=== PATIENT | female | born 1990 | race Caucasian/White ===

== ENCOUNTER 2016-10-10 12:49 | Outpatient (CLI) | payer OTHER ==
[~2016-10-10] VITALS: Ht 167.6 cm; Wt 127.5 kg
[~2016-10-10 12:49] MED LIST: ACET325T33 PO
[2016-10-10] MEDS ORDERED: PRENAT PO (13:19)
[2016-10-10] MEDS ORDERED: FER325 PO (13:20)
[2016-10-10] MEDS ORDERED: CALC600T11 PO (13:21)
[2016-10-10 13:22] VITALS: Ht 167.6 cm; Wt 127.5 kg
[2016-10-10 13:24] VITALS: BP 133/69; PULSE 90
--- NOTE | 2016-10-10 15:17 | RADRPT ---
PROCEDURE: OB ultrasound for biophysical profile CLINICAL INDICATION: Biophysical profile. . Decreased movement TECHNIQUE: Multiple sonographic images of the pelvis were obtained. Transabdominal views are obta ined. COMPARISON: 05/19/2016 OB ultrasound FINDINGS: Single intrauterine gestation. Presentation: Cephalic. Placenta: Anterior. No evidence of placental abruption. No evidence of placenta previa. breathing movement = 2/2 tone = 2/2 motion = 2/2 MARK = 2/2 MARK = 14.2 cm heart rate: 140 beats per minute IMPRESSION: Single intrauterine gestation. Biophysical profile 01/24 RPTAT: AADD .Vishnu Olivier MD, MD Date Time Electronically viewed and signed by .Vishnu Olivier MD, on 10/10/2016 15:16 .B/
--- NOTE | 2016-10-10 16:30 | PN ---
Date/Time of Note Date/Time of Note DATE: 10/10/16 TIME: 16:28 OB Subjective Subjective Subjective Patient is 1 para 0 at 30+3 weeks of gestation who presents with decreased movement She also reports couple episodes of elevated blood pressure in the office and positive proteinuria Patient reports positive movement, no leaking fluid no vaginal bleeding OB Objective Objective Objective NST is reactive Biophysical profile of 8 out of 8 MARK 14.2 HEENT: WNL Heart: Rhythm Normal Lungs: Clear Abdomen: WNL Extremities: Normal Heart Rate: 140's Accelerations: Accelerations Present Decelerations: No Decelerations Contractions on Admission: None OB Assessment/Plan Other Assessment: 1 para 0 at 30+ weeks of gestation Rule out PIH Other plan: PIH labs- wnl Patient has a follow-up appointment with her OB on , October 13, 2016 MIKE ABEL MD Oct 10, 2016 16:30
[2016-10-10 17:22] LABS: ADD SCAN DIFF NO
[2016-10-10 17:24] LABS: BASOPHILS % 0.2 % (0.0-2.0); EOSINOPHILS # 0.2 10^3/ul (0.0-0.5); EOSINOPHILS % 1.3 % (0.0-7.0); HEMATOCRIT 32.7 % (37.0-47.0); HEMOGLOBIN 10.5 g/dl (12.0-16.0); LYMPHOCYTES # 1.8 10^3/ul (0.8-2.9); LYMPHOCYTES % 14.3 % (15.0-51.0); MEAN CORPUSCULAR HEMOGLOBIN 25.4 pg (29.0-33.0); MEAN CORPUSCULAR HGB CONC 32.1 g/dl (32.0-37.0); MEAN CORPUSCULAR VOLUME 79.2 fl (82.0-101.0); MEAN PLATELET VOLUME 10.9 fl (7.4-10.4); MONOCYTE # 0.7 10^3/ul (0.3-0.9); MONOCYTES % 5.4 % (0.0-11.0); NEUTROPHILS % 78.4 % (39.0-77.0); PLATELET COUNT 265 10^3/UL (140-415); RED BLOOD COUNT 4.13 10^6/ul (4.20-5.40); RED CELL DISTRIBUTION WIDTH 15.4 % (11.5-14.5); WHITE BLOOD COUNT 12.8 10^3/ul (4.8-10.8)
[2016-10-10 17:27] LABS: INR 1.06; PROTIME 13.8 Sec (12.2-14.2); PT RATIO 1.1
[2016-10-10 17:28] LABS: PARTIAL THROMBOPLASTIN TIME 30.5 Sec (25.0-35.0)
[2016-10-10 17:29] LABS: ALBUMIN 3.1 g/dl (3.3-4.9)
[2016-10-10 17:30] LABS: POTASSIUM 3.7 mmol/L (3.5-5.1)
[2016-10-10 17:32] LABS: ALBUMIN/GLOBULIN RATIO 0.83; BILIRUBIN,INDIRECT 0.1 mg/dl (0-1.1); BILIRUBIN,TOTAL 0.1 mg/dl (0.2-1.3); CREATININE 0.46 mg/dl (0.44-1.00); TOTAL PROTEIN 6.8 g/dl (6.1-8.1)
[2016-10-10 17:33] LABS: CALCIUM 8.6 mg/dl (8.4-10.2)
[2016-10-10 18:34] LABS: ADD UMIC YES; UR BILIRUBIN (Dip) NEGATIVE (NEGATIVE); UR BLOOD (Dip) 2+ (NEGATIVE); UR CLARITY CLOUDY (CLEAR); UR COLOR YELLOW (YELLOW); UR GLUCOSE (Dip) NEGATIVE (NEGATIVE); UR KETONES (Dip) NEGATIVE (NEGATIVE); UR LEUKOCYTE ESTERASE (Dip) NEGATIVE (NEGATIVE); UR NITRITE (Dip) NEGATIVE (NEGATIVE); UR TOTAL PROTEIN (Dip) 2+ (NEGATIVE); UR UROBILINOGEN (Dip) 1.0 E.U./dL (0.1-1.0)
[2016-10-10 18:46] LABS: UR BACTERIA MODERATE; UR SQUAMOUS EPITHELIAL CELL MANY
--- NOTE | 2016-10-10 19:13 | TRIAGE ---
OB Triage Datetime Report Generated by CPN: 10/10/2016 19:13 Datetime: 10/10/2016 19:09 Stage of : OB Triage Datetime: 10/10/2016 19:02 Stage of : OB Triage Datetime: 10/10/2016 16:46 Stage of : OB Triage Datetime: 10/10/2016 16:13 Contraction Comments: MONITOR REMOVED;AWAITNG LABORIST TO SEE PT BEFORE DISCHARGE Datetime: 10/10/2016 15:58 Stage of : OB Triage Datetime: 10/10/2016 15:56 Stage of : OB Triage Labor Evaluation Frequency: 0 Monitor Mode: External Resting Tone [place]: Relaxed Heart Rate FHR Baseline Rate: 135 Monitor Mode: External US FHR Baseline Changes: No Baseline Change Variability: Moderate 6-25 bpm Accelerations: 15X15 Decelerations: None Pain Assessment Pain Scale: 0 Pain Presence: None/Denies Datetime: 10/10/2016 15:09 Labor Evaluation Frequency: NONE Monitor Mode: External US Vaginal Exam Membrane Status: Intact Datetime: 10/10/2016 14:52 Monitor Mode: External US Comments: US REMOVED FOR SCAN Datetime: 10/10/2016 14:16 Labor Evaluation Frequency: 0 Monitor Mode: External Resting Tone [place]: Relaxed Heart Rate FHR Baseline Rate: 135 Monitor Mode: External US FHR Baseline Changes: No Baseline Change Variability: Moderate 6-25 bpm Accelerations: 15X15 Decelerations: None Category: Category I Pain Assessment Pain Scale: 0 Pain Presence: None/Denies Datetime: 10/10/2016 13:33 Stage of : OB Triage Nausea/Vomiting: Denies Labor Evaluation Frequency: N0NE Monitor Mode: External Resting Tone [place]: Relaxed Heart Rate FHR Baseline Rate: 140 Monitor Mode: External US Variability: Moderate 6-25 bpm Accelerations: 15X15 Decelerations: None Pain Presence: None/Denies Datetime: 10/10/2016 13:16 Comments: MOVEMENT PRESENT/PALPATED BY RN Datetime: 10/10/2016 13:12 Assessment Type: Triage Maternal Assessment Level of Consciousness: Fully Conscious DTR's/Clonus: DTRs 2+; No Clonus Headache: Denies Blurred Vision: No Respiratory Effort: Unlabored; Regular Rhythm; Equal Expansion Breath Sounds, Left: Clear and Equal Breath Sounds, Right: Clear and Equal Nausea/Vomiting: Denies RUQ Epigastric Pain: Denies Lower Extremities Edema: None Degree: None Upper Extremities Edema: None Degree: None Facial Edema: None Fall Risk Assessment History of Falling: (0) No Secondary Diagnosis: (0) No Ambulatory Aid: (0) Bedrest/Nurse Assist IV Therapy: (0) No Gait: (0) Normal/Bedrest/Immobile Mental Status: (0) Oriented to Own Ability Fall Score: 0 Fall Risk Score Definition: No Risk: No action required Datetime: 10/10/2016 13:10 EGA: 30.3 Maternal Assessment Level of Consciousness: Fully Conscious DTR's/Clonus: DTRs 2+ Headache: Denies Blurred Vision: No Nausea/Vomiting: Denies RUQ Epigastric Pain: Denies Facial Edema: None Labor Evaluation Frequency: N0NE Monitor Mode: External Resting Tone [place]: Relaxed Heart Rate FHR Baseline Rate: 145 Monitor Mode: External US Variability: Moderate 6-25 bpm Decelerations: None Pain Presence: None/Denies Vaginal Exam Membrane Status: Intact Datetime: 10/10/2016 13:03 Monitor Mode: External US Datetime: 10/10/2016 13:01 Monitor Mode: External Datetime: 10/10/2016 13:00 Time of Arrival: 10/10/2016 13:00 Arrived By: Ambulatory Arrived From: DrHumberto Office Chief Complaint: DECREASED MOVEMENT;SENT FROM CLINIC Movement: Decreased Contractions: Denies/Absent Rupture of Membranes: Denies Vaginal Bleeding: None Vaginal Discharge: Denies Recent Sexual Intercouse: Denies Abdominal Trauma: Not Applicable Patient Complaints: Other Provider Notified: JAKE Initial Plan: CALVIN/ROSENDA
--- NOTE | 2016-10-10 19:32 | QN ---
Documentation Comment 26 y/o female P0 at 30 + weeks sent in from clinic for elevated BP and proteinuria Bps are normal and patient is totally asymptomatic' labs are normal NPP normal and NST R patient has 2 + proteinuria will send for urine Cx revisit in 3 days and PI warnings given BO MARTINEZ MD Oct 10, 2016 19:31
== END 2016-10-10 19:12 | disposition home or self-care (01) ==
LOC: OBT 12:49 → L-D 12:49 → OBT 19:12
PROVIDERS: ATTEND Obstetrics & Gynecology
DX: O36.8130 Decreased fetal movements, third trimester, not applicable or unspecified (principal); O26.893 Other specified pregnancy related conditions, third trimester; R03.0 Elevated blood-pressure reading, without diagnosis of hypertension; Z3A.30 30 weeks gestation of pregnancy
CPT/HCPCS: 36415; 76818; 80053; 81001; 84560; 85025; 85610; 85730; 87086; Z7500; 81003; G0463

== ENCOUNTER 2016-11-03 15:24 | Outpatient (CLI) | payer OTHER ==
[~2016-11-03] VITALS: Ht 167.6 cm; Wt 127.2 kg
[~2016-11-03 15:24] MED LIST changes: -ACET325T33 PO; +CALC600T11 PO; +FER325 PO; +PRENAT PO
[2016-11-03 15:44] VITALS: Ht 167.6 cm; Wt 127.2 kg
[2016-11-03] MEDS ORDERED: BETAMET NA PHOS/AC(6 MG/ML) 5ML INJ IM SCH (16:00)
[2016-11-03 16:18] LABS: ADD SCAN DIFF NO
[2016-11-03 16:22] LABS: BASOPHILS % 0.3 % (0.0-2.0); EOSINOPHILS # 0.1 10^3/ul (0.0-0.5); EOSINOPHILS % 1.2 % (0.0-7.0); HEMATOCRIT 32.7 % (37.0-47.0); HEMOGLOBIN 10.3 g/dl (12.0-16.0); LYMPHOCYTES # 1.7 10^3/ul (0.8-2.9); LYMPHOCYTES % 14.4 % (15.0-51.0); MEAN CORPUSCULAR HEMOGLOBIN 23.8 pg (29.0-33.0); MEAN CORPUSCULAR HGB CONC 31.5 g/dl (32.0-37.0); MEAN CORPUSCULAR VOLUME 75.7 fl (82.0-101.0); MONOCYTE # 0.6 10^3/ul (0.3-0.9); MONOCYTES % 4.8 % (0.0-11.0); NEUTROPHIL # 9.4 10^3/ul (1.6-7.5); PLATELET COUNT 253 10^3/UL (140-415); RED BLOOD COUNT 4.32 10^6/ul (4.20-5.40); RED CELL DISTRIBUTION WIDTH 15.2 % (11.5-14.5); WHITE BLOOD COUNT 11.9 10^3/ul (4.8-10.8)
[2016-11-03 16:26] LABS: ADD UMIC YES; URINE BILIRUBIN (Dip) NEGATIVE (NEGATIVE); URINE BLOOD (Dip) 2+ (NEGATIVE); URINE COLOR LT. YELLOW (YELLOW); URINE GLUCOSE (Dip) NEGATIVE (NEGATIVE); URINE KETONES (Dip) TRACE (NEGATIVE); URINE LEUKOCYTE ESTERASE (Dip) NEGATIVE (NEGATIVE); URINE NITRITE (Dip) NEGATIVE (NEGATIVE); URINE TOTAL PROTEIN (Dip) 1+ (NEGATIVE); URINE UROBILINOGEN (Dip) 0.2 E.U./dL (0.1-1.0)
[2016-11-03 16:42] LABS: INR 1.05; PROTIME 13.7 Sec (12.2-14.2); PT RATIO 1.1
[2016-11-03 16:43] LABS: PARTIAL THROMBOPLASTIN TIME 31.8 Sec (25.0-35.0)
[2016-11-03 16:44] LABS: ALBUMIN 3.1 g/dl (3.3-4.9); ALBUMIN/GLOBULIN RATIO 0.91; CALCIUM 8.4 mg/dl (8.4-10.2); CREATININE 0.43 mg/dl (0.44-1.00); POTASSIUM 3.5 mmol/L (3.5-5.1); TOTAL PROTEIN 6.5 g/dl (6.1-8.1)
[2016-11-03 16:49] LABS: BACTERIA,URINE FEW; SQUAMOUS EPITHELIAL CELL,UR MANY
--- NOTE | 2016-11-03 17:57 | QN ---
Documentation Comment here to receive betamethasone for PIH at 33.6 weeks had BPP and B=NST in antepartum unit wikk repeat the dose next day BO MARTINEZ MD November 03, 2016 17:57
--- NOTE | 2016-11-03 18:35 | TRIAGE ---
OB Triage Datetime Report Generated by CPN: 11/03/2016 18:34 Datetime: 11/03/2016 18:15 Time of Arrival: 11/03/2016 15:20 EGA: 33.6 Arrived By: Ambulatory Arrived From: Dr. Parrish Chief Complaint: PIH; PT SENT FOR BETAMETHASONE Movement: Present Contractions: Denies/Absent Rupture of Membranes: Denies Vaginal Bleeding: None Vaginal Discharge: Denies Recent Sexual Intercouse: Denies Abdominal Trauma: Not Applicable Patient Complaints: None; Other Time Provider Notified: 11/03/2016 16:30 Provider Notified: DR. JOSEPH Initial Plan: EFMx2, BETAMETHASONE Datetime: 11/03/2016 18:13 Maternal Assessment Level of Consciousness: Fully Conscious Headache: Denies Blurred Vision: No Nausea/Vomiting: Denies RUQ Epigastric Pain: Denies Facial Edema: None Labor Evaluation Frequency: x3 Monitor Mode: External Duration (sec)2399: 50-80 Quality: Mild Pattern: Normal: <= 5 Contractions in 10 Minutes Resting Tone [place]: Relaxed Heart Rate FHR Baseline Rate: 135 Monitor Mode: External US FHR Baseline Changes: No Baseline Change Variability: Moderate 6-25 bpm Accelerations: 15X15 Decelerations: None Pain Assessment Pain Scale: 0 Pain Presence: None/Denies Pain Type: N/A Datetime: 11/03/2016 16:04 Headache: Denies Blurred Vision: No RUQ Epigastric Pain: Denies Facial Edema: None Labor Evaluation Frequency: none Heart Rate FHR Baseline Rate: 130 Monitor Mode: External US FHR Baseline Changes: No Baseline Change Variability: Moderate 6-25 bpm Accelerations: 15X15 Decelerations: None Category: Category I Pain Presence: None/Denies Vaginal Exam Membrane Status: Intact Datetime: 11/03/2016 15:52 Stage of : OB Triage Maternal Assessment Level of Consciousness: Fully Conscious DTR's/Clonus: DTRs 2+; No Clonus Headache: Denies Blurred Vision: No Respiratory Effort: Unlabored; Regular Rhythm; Equal Expansion Breath Sounds, Left: Clear and Equal Breath Sounds, Right: Clear and Equal Nausea/Vomiting: Denies RUQ Epigastric Pain: Denies Lower Extremities Edema: Bilateral Lower Extremities Degree: 1+ Upper Extremities Edema: None Degree: None Facial Edema: None Temperature Route: Oral Fall Risk Assessment History of Falling: (0) No Secondary Diagnosis: (0) No Ambulatory Aid: (0) Bedrest/Nurse Assist IV Therapy: (0) No Gait: (0) Normal/Bedrest/Immobile Mental Status: (0) Oriented to Own Ability Fall Score: 0 Fall Risk Score Definition: No Risk: No action required Monitor Mode: External Duration (sec)2399: none noted and palpated Heart Rate FHR Baseline Rate: 128 Monitor Mode: External US Pain Assessment Pain Scale: 0 Datetime: 10/10/2016 13:12 Fall Score: 0 Fall Risk Score Definition: No Risk: No action required Datetime: 10/10/2016 13:10 Time of Arrival: 11/03/2016 13:10 EGA: 33.6 Chief Complaint: pih work up and betamethasone shot Movement: Present Contractions: Denies/Absent Rupture of Membranes: Denies Vaginal Bleeding: None Vaginal Discharge: Denies Recent Sexual Intercouse: Denies Abdominal Trauma: Not Applicable Patient Complaints: Other Time Provider Notified: 11/03/2016 16:30 Provider Notified: Dr Joseph Initial Plan: efm/ lab Datetime: 10/10/2016 13:00 Time Provider Notified: 10/10/2016 13:47
== END 2016-11-03 18:25 | disposition home or self-care (01) ==
LOC: OBT 15:24 → L-D 15:25 → OBT 18:25
PROVIDERS: ATTEND Obstetrics & Gynecology
DX: O26.893 Other specified pregnancy related conditions, third trimester (principal); Z79.52 Long term (current) use of systemic steroids; Z3A.33 33 weeks gestation of pregnancy
CPT/HCPCS: 80053; 81001; 81003; 84560; 85025; 85384; 85610; 85730; 96372; J0702; Z7500; G0463

== ENCOUNTER 2016-11-04 16:18 | Outpatient (CLI) | payer OTHER ==
[~2016-11-04] VITALS: Ht 167.6 cm; Wt 128.2 kg
[2016-11-04 16:39] VITALS: Ht 167.6 cm; Wt 128.2 kg
[2016-11-04 16:40] VITALS: BP 117/64; PULSE 89; RESP 20
[2016-11-04] MEDS ORDERED: BETAMET NA PHOS/AC(6 MG/ML) 5ML INJ IM SCH (17:00)
--- NOTE | 2016-11-04 17:25 | TRIAGE ---
OB Triage Datetime Report Generated by CPN: 11/04/2016 17:25 Datetime: 11/04/2016 16:49 Time of Arrival: 11/04/2016 16:15 EGA: 34.0 Arrived By: Ambulatory Arrived From: Home Chief Complaint: #2 beta methazone shot Movement: Present Contractions: Denies/Absent Rupture of Membranes: Denies Vaginal Bleeding: None Patient Complaints: None Additional Patient Complaints: r/o pre-eclampsia (+ protein in urine) and dr wants to induce at 37 wks Time Provider Notified: 11/04/2016 16:55 Initial Plan: efm, #2 beta shot, talk to dr, see dr Datetime: 11/04/2016 16:46 Stage of : OB Triage Assessment Type: Triage Maternal Assessment Level of Consciousness: Fully Conscious DTR's/Clonus: DTRs 2+; No Clonus Headache: Denies Blurred Vision: No Respiratory Effort: Unlabored; Regular Rhythm; Equal Expansion Breath Sounds, Left: Clear and Equal Breath Sounds, Right: Clear and Equal Nausea/Vomiting: Denies RUQ Epigastric Pain: Denies Lower Extremities Edema: Bilateral Lower Extremities Upper Extremities Edema: None Facial Edema: None Temperature Route: Axillary Fall Risk Assessment History of Falling: (0) No Secondary Diagnosis: (0) No Ambulatory Aid: (0) Bedrest/Nurse Assist IV Therapy: (0) No Gait: (0) Normal/Bedrest/Immobile Mental Status: (0) Oriented to Own Ability Fall Score: 0 Fall Risk Score Definition: No Risk: No action required Labor Evaluation Monitor Mode: External Heart Rate FHR Baseline Rate: 130 Monitor Mode: External US Variability: Moderate 6-25 bpm Accelerations: 15X15 Decelerations: None Category: Category I Pain Assessment Pain Scale: 0 Pain Presence: None/Denies Pain Type: N/A Pain Goal: 0 Pain Relief Measures: Comfort Measures Datetime: 11/03/2016 18:15 EGA: 33.6 Datetime: 11/03/2016 15:52 Fall Score: 0 Fall Risk Score Definition: No Risk: No action required Datetime: 10/10/2016 13:12 Fall Score: 0 Fall Risk Score Definition: No Risk: No action required Datetime: 10/10/2016 13:10 EGA: 33.6
--- NOTE | 2016-11-04 18:00 | QN ---
Documentation Comment iup 34 weeks h/o of elevated BP vss 120/70 exam wnl a; iup 34 weeks ho elevated bp BMS course fu nst TC JIMENEZ MD November 04, 2016 18:00
== END 2016-11-04 17:20 | disposition home or self-care (01) ==
LOC: OBT 16:18 → L-D 16:18 → OBT 17:20
PROVIDERS: ATTEND Obstetrics & Gynecology
DX: O26.893 Other specified pregnancy related conditions, third trimester (principal); R03.0 Elevated blood-pressure reading, without diagnosis of hypertension; Z3A.34 34 weeks gestation of pregnancy
CPT/HCPCS: 96372; G0463; J0702

== ENCOUNTER 2016-11-21 09:02 | Outpatient (CLI) | payer OTHER ==
[~2016-11-21] VITALS: Ht 167.6 cm; Wt 127.3 kg
[2016-11-21 09:21] VITALS: BP 106/53; PULSE 74; Ht 167.6 cm; Wt 127.3 kg
--- NOTE | 2016-11-21 11:19 | RADRPT ---
PROCEDURE: US OB biophysical profile. CLINICAL INDICATION: decreased movements, hypertension TECHNIQUE: Multiple sonographic images of the pelvis were obtained. The images were reviewed on a PACS workstation. COMPARISON: 10/10/2016 FINDINGS: There is a single viable intrauterine gestation. Cardiac activity is present with 123 beats per min [place]. There is a vertex presentation. The placenta is anterior. There is no evidence of placental abruption. There is a normal amount of amniotic fluid with an MARK = 9.5 cm. Biophysical profile: movement 2/2 tone 2/2. breathing 2/2 MARK 2/2 Total 01/24 RPTAT: AA . IMPRESSION: Normal biophysical profile. . .Mane Oakes MD, MD Date Time Electronically viewed and signed by .Mane Oakes MD, on 11/21/2016 11:19 .S/
== END 2016-11-21 12:10 | disposition home or self-care (01) ==
LOC: OBT 09:02 → L-D 09:05 → OBT 12:10
PROVIDERS: ATTEND Obstetrics & Gynecology
DX: O26.893 Other specified pregnancy related conditions, third trimester (principal); R03.0 Elevated blood-pressure reading, without diagnosis of hypertension; Z3A.36 36 weeks gestation of pregnancy
CPT/HCPCS: 76818; Z7500; G0463

== ENCOUNTER 2016-11-28 14:00 | Inpatient (IN) | payer OTHER ==
[~2016-11-28] VITALS: Ht 167.6 cm; Wt 127.5 kg
[2016-11-28 15:43] VITALS: Ht 167.6 cm; Wt 127.5 kg
[2016-11-28 15:45] VITALS: BP 136/84; PULSE 78; RESP 16
[2016-11-28] MEDS ORDERED: PRENAT PO (15:51)
--- NOTE | 2016-11-28 16:26 | HP ---
Date/Time of Note Date/Time of Note DATE: 11/28/16 TIME: 16:22 OB - History Hx of Present Free Text/Dictation admitted for induction of the labor because of mild PIH Last Menstrual Period: Mar 11, 2016 Estimated Due Date: Dec 16, 2016 : 1 Para: 0 Care: Good Care Ultrasounds: No ultrasounds Obstetrical Complications: Gestational Hypertension (PIH) Past Family/Social History * Past Medical, Surgical, Family and Obstetric Histories reviewed from chart. GBS Status: Positive OB Admission Exam Vital Signs Vital Signs Vital Signs Date Time Temp Pulse Resp B/P Pulse Ox O2 Delivery O2 Flow Rate FiO2 11/28/16 15:45 97.7 78 16 136/84 Room Air Physical Exam HEENT: WNL Heart: Rhythm Normal Lungs: Clear, Equal Abdomen: WNL Extremities: Normal Reflexes: Normal Cervical Dilatation: Fingertip Effacement: 0% Station: -3 Membranes: Intact Heart Rate: 140's Accelerations: Accelerations Present Decelerations: No Decelerations Varibility: Marked Contractions on Admission: None OB Assessment/Plan Reason for admission: induction of labor Other Assessment: PIH at 37 weeks Induction Method: per Misoprostol Protocol BO MARTINEZ MD Nov 28, 2016 16:26
[2016-11-28] MEDS ORDERED: IBUPROFEN 600 MG TAB PO PRN (16:30)
[2016-11-28] MEDS ORDERED: LIDOCAINE 1% (MPF) 30 ML INJ INJ PRN (16:30)
[2016-11-28] MEDS ORDERED: CARBOPROST 250 MCG INJ IM PRN (16:30)
[2016-11-28] MEDS ORDERED: MISOPROSTOL 200 MCG TAB PR PRN (16:30)
[2016-11-28] MEDS ORDERED: BUTORPHANOL 2 MG INJ IV PRN ×2 (16:30)
[2016-11-28] MEDS ORDERED: DINOPROSTONE 10 MG VAG SUPP VAG ONE (16:30)
[2016-11-28] MEDS ORDERED: OXYTOCIN 30 UNITS/LR 500 ML IV SCH (16:30)
[2016-11-28] MEDS ORDERED: METHYLERGONOVINE 0.2 MG INJ IM PRN (16:30)
[2016-11-28] MEDS ORDERED: OXYTOCIN 30 UNITS/LR 500 ML IV PRN (16:30)
[2016-11-28] MEDS ORDERED: AMPICILLIN 2 GM/NS (PMX) 100 ML IV ONE (16:30)
[2016-11-28] MEDS: LACTATED RINGER'S 1,000 ML IV SCH (16:47)
[2016-11-28 17:14] LABS: ADD SCAN DIFF NO
[2016-11-28 17:16] LABS: BASOPHILS % 0.3 % (0.0-2.0); EOSINOPHILS # 0.1 10^3/ul (0.0-0.5); LYMPHOCYTES # 1.9 10^3/ul (0.8-2.9); LYMPHOCYTES % 16.7 % (15.0-51.0); MEAN CORPUSCULAR HEMOGLOBIN 23.5 pg (29.0-33.0); MEAN CORPUSCULAR HGB CONC 31.4 g/dl (32.0-37.0); MEAN CORPUSCULAR VOLUME 74.8 fl (82.0-101.0); MEAN PLATELET VOLUME 11.2 fl (7.4-10.4); MONOCYTE # 0.6 10^3/ul (0.3-0.9); MONOCYTES % 5.7 % (0.0-11.0); NEUTROPHIL # 8.5 10^3/ul (1.6-7.5); NEUTROPHILS % 75.9 % (39.0-77.0); PLATELET COUNT 247 10^3/UL (140-415); RED BLOOD COUNT 4.68 10^6/ul (4.20-5.40); RED CELL DISTRIBUTION WIDTH 16.7 % (11.5-14.5); WHITE BLOOD COUNT 11.1 10^3/ul (4.8-10.8)
[2016-11-28 17:30] LABS: INR 1.01; PROTIME 13.3 Sec (12.2-14.2)
[2016-11-28 17:31] LABS: PARTIAL THROMBOPLASTIN TIME 29.7 Sec (25.0-35.0)
[2016-11-28] MEDS: AMPICILLIN 1 GM/NS (PMX) 50 ML IV SCH (21:19)
[2016-11-29] MEDS: AMPICILLIN 1 GM/NS (PMX) 50 ML IV SCH ×7 (01:00→21:02)
[2016-11-29] MEDS: LACTATED RINGER'S 1,000 ML IV SCH ×3 (01:10→18:56)
[2016-11-29 09:58] LABS: ADD UMIC YES; URINE BILIRUBIN (Dip) NEGATIVE (NEGATIVE); URINE BLOOD (Dip) TRACE (NEGATIVE); URINE COLOR YELLOW (YELLOW); URINE GLUCOSE (Dip) NEGATIVE (NEGATIVE); URINE KETONES (Dip) NEGATIVE (NEGATIVE); URINE LEUKOCYTE ESTERASE (Dip) NEGATIVE (NEGATIVE); URINE NITRITE (Dip) NEGATIVE (NEGATIVE); URINE TOTAL PROTEIN (Dip) 2+ (NEGATIVE); URINE UROBILINOGEN (Dip) 0.2 E.U./dL (0.1-1.0)
[2016-11-29 10:28] LABS: URINE RBCS NONE SEEN /HPF (0)
[2016-11-29] MEDS ORDERED: DINOPROSTONE 10 MG VAG SUPP VAG ONE (13:30)
[2016-11-29 13:51] LABS: ALBUMIN 2.8 g/dl (3.3-4.9); ALBUMIN/GLOBULIN RATIO 1.07; BILIRUBIN,INDIRECT 0.3 mg/dl (0-1.1); BILIRUBIN,TOTAL 0.3 mg/dl (0.2-1.3); CALCIUM 8.6 mg/dl (8.4-10.2); CREATININE 0.54 mg/dl (0.44-1.00); POTASSIUM 4.5 mmol/L (3.5-5.1); TOTAL PROTEIN 5.4 g/dl (6.1-8.1)
--- NOTE | 2016-11-29 18:09 | PN ---
Date/Time of Note Date/Time of Note DATE: 11/29/16 TIME: 18:08 OB Subjective Subjective Subjective NO C/O headache , BV or epigastric pain OB Objective Objective Objective VSS P/E: NL OB Assessment/Plan Other Assessment: PIH 37 + weeks gestation Induction Method: per Misoprostol Protocol (replace ) BO MARTINEZ MD Nov 29, 2016 18:09
[2016-11-29] MEDS ORDERED: LACTATED RINGER'S 1,000 ML IV PRN (20:40)
[2016-11-30] MEDS: AMPICILLIN 1 GM/NS (PMX) 50 ML IV SCH ×5 (01:04→17:48)
[2016-11-30] MEDS: LACTATED RINGER'S 1,000 ML IV SCH ×2 (12:22→12:58)
--- NOTE | 2016-11-30 14:34 | RADRPT ---
PROCEDURE: US OB biophysical profile. CLINICAL INDICATION: evaluation TECHNIQUE: Multiple sonographic images of the pelvis were obtained. The images were reviewed on a PACS workstation. COMPARISON: Obstetrical ultrasound from 11/21/2016 FINDINGS: There is a single viable intrauterine gestation. Cardiac activity is present with 144 beats per min [place]. There is a vertex presentation. The placenta is anterior. There is no evidence of placental abruption. There is a normal amount of amniotic fluid with an MARK = 10.6 cm. Biophysical profile: movement 2/2 tone 2/2. breathing 2/2 MARK 2/2 Total 01/24 RPTAT: AA . IMPRESSION: Normal biophysical profile. Physician Cuco Date Time Electronically viewed and signed by Physician Cuco on 11/30/2016 14:34 /
[2016-11-30 14:41] LABS: ADD SCAN DIFF NO
[2016-11-30 14:43] LABS: BASOPHILS % 0.2 % (0.0-2.0); EOSINOPHILS # 0.1 10^3/ul (0.0-0.5); EOSINOPHILS % 0.9 % (0.0-7.0); HEMATOCRIT 32.4 % (37.0-47.0); HEMOGLOBIN 10.1 g/dl (12.0-16.0); LYMPHOCYTES # 1.6 10^3/ul (0.8-2.9); LYMPHOCYTES % 18.1 % (15.0-51.0); MEAN CORPUSCULAR HEMOGLOBIN 23.1 pg (29.0-33.0); MEAN CORPUSCULAR HGB CONC 31.2 g/dl (32.0-37.0); MEAN PLATELET VOLUME 10.8 fl (7.4-10.4); MONOCYTE # 0.5 10^3/ul (0.3-0.9); MONOCYTES % 5.3 % (0.0-11.0); NEUTROPHIL # 6.4 10^3/ul (1.6-7.5); NEUTROPHILS % 75.1 % (39.0-77.0); PLATELET COUNT 220 10^3/UL (140-415); RED BLOOD COUNT 4.38 10^6/ul (4.20-5.40); RED CELL DISTRIBUTION WIDTH 16.7 % (11.5-14.5); WHITE BLOOD COUNT 8.6 10^3/ul (4.8-10.8)
[2016-11-30 15:00] LABS: INR 1.03; PROTIME 13.5 Sec (12.2-14.2); PT RATIO 1.1
[2016-11-30 15:01] LABS: PARTIAL THROMBOPLASTIN TIME 30.3 Sec (25.0-35.0)
[2016-11-30 15:06] LABS: ALBUMIN 3.1 g/dl (3.3-4.9); ALBUMIN/GLOBULIN RATIO 1.14; BILIRUBIN,INDIRECT 0.3 mg/dl (0-1.1); BILIRUBIN,TOTAL 0.3 mg/dl (0.2-1.3); CALCIUM 8.4 mg/dl (8.4-10.2); CREATININE 0.54 mg/dl (0.44-1.00); POTASSIUM 3.7 mmol/L (3.5-5.1); TOTAL PROTEIN 5.8 g/dl (6.1-8.1); URIC ACID 5.3 mg/dl (3.1-7.9)
[2016-11-30 15:41] LABS: ADD UMIC YES; URINE BILIRUBIN (Dip) NEGATIVE (NEGATIVE); URINE BLOOD (Dip) 3+ (NEGATIVE); URINE COLOR LT. YELLOW (YELLOW); URINE GLUCOSE (Dip) NEGATIVE (NEGATIVE); URINE KETONES (Dip) 15 (NEGATIVE); URINE LEUKOCYTE ESTERASE (Dip) NEGATIVE (NEGATIVE); URINE NITRITE (Dip) NEGATIVE (NEGATIVE); URINE TOTAL PROTEIN (Dip) 2+ (NEGATIVE); URINE UROBILINOGEN (Dip) 0.2 E.U./dL (0.1-1.0)
[2016-11-30 15:59] LABS: SQUAMOUS EPITHELIAL CELL,UR MANY; URINE RBCS 0-2 /HPF (0)
--- NOTE | 2016-11-30 18:33 | DS ---
Date/Time of Note Date/Time of Note will redo induction in 2-3 days DATE: 11/30/16 TIME: 18:31 Obstetrical Discharge Record Final Diagnosis Final Diagnosis: Term not delivered Other Final Diagnosis S/P unsuccessful induction Complications Preg induced Hypertension Augmentation: No Induction: Yes Condition on Discharge Physical Assessment Voiding: Yes Bowel Movement: Yes Breast: Soft, non-tender, Filling Fundus: Other ( ) Abdomen and Incision: soft BS + gravid Episiotomy: NA Calf Tenderness: No Patient Condition: Good BO MARTINEZ MD Nov 30, 2016 18:33
--- NOTE | 2016-11-30 18:36 | PD.PPDC ---
INVESTIGATOR VICE Discharge Instruction Provider Information Physician Information 26 y/o female admitted for induction because of PIH that remained unsuccessful Diagnosis Final Diagnosis: PIH at 37 +weeks Condition Patient Condition: Good Diet Diet: Resume Regular Diet Activity/Restrictions Activity: Bedrest May Shower Restrictions: Nothing in the Vagina Follow-up Follow-up with Physician: 3, Day/Days (refer for induction ) Return to clinic for OB Instructions: Blurried Vision Headache (and epigastric pain ) BO MARTINEZ MD Nov 30, 2016 18:36
[2016-12-01 12:50] LABS: RUBELLA ANTIBODY - IGG <0.90 index
== END 2016-11-30 19:15 | disposition home or self-care (01) | DRG 782 ==
LOC: L-D 15:01
PROVIDERS: ADMIT Obstetrics & Gynecology; ATTEND Obstetrics & Gynecology
PROC: 3E0P7GC Introduction of Other Therapeutic Substance into Female Reproductive, Via Natural or Artificial Opening (ICD-10-PCS; principal; 2016-11-28 14:00)
DX: O13.3 Gestational [pregnancy-induced] hypertension without significant proteinuria, third trimester (principal); O61.0 Failed medical induction of labor; Z3A.37 37 weeks gestation of pregnancy
CPT/HCPCS: 76818; 80053; 81001; 84560; 85025; 85384; 85610; 85730; 86592; 86762; 86900; 86901; 87340; J0290; J7120

== ENCOUNTER 2016-12-01 17:25 | Outpatient (CLI) | payer OTHER ==
[~2016-12-01] VITALS: Ht 167.6 cm; Wt 134.5 kg
[2016-12-01 17:53] LABS: URINE BLOOD (Dip) POC 1+ (NEGATIVE)
[2016-12-01 18:25] VITALS: Ht 167.6 cm; Wt 134.5 kg
[2016-12-01 18:26] VITALS: BP 135/63; PULSE 78; RESP 20
[2016-12-01 18:41] LABS: ADD UMIC YES; UR BILIRUBIN (Dip) 1+ (NEGATIVE); UR BLOOD (Dip) 1+ (NEGATIVE); UR CLARITY SLIGHTLY CLOUDY (CLEAR); UR COLOR YELLOW (YELLOW); UR GLUCOSE (Dip) NEGATIVE (NEGATIVE); UR KETONES (Dip) NEGATIVE (NEGATIVE); UR LEUKOCYTE ESTERASE (Dip) TRACE (NEGATIVE); UR NITRITE (Dip) NEGATIVE (NEGATIVE); UR TOTAL PROTEIN (Dip) 4+ (NEGATIVE); UR UROBILINOGEN (Dip) 4.0 E.U./dL (0.1-1.0)
[2016-12-01 18:55] LABS: ICTOTEST NEGATIVE (NEGATIVE); UR SQUAMOUS EPITHELIAL CELL MANY
[2016-12-01 18:56] LABS: UR BACTERIA MODERATE
--- NOTE | 2016-12-01 19:03 | RADRPT ---
PROCEDURE: Obstetrical ultrasound CLINICAL INDICATION: Labor TECHNIQUE: Multiple sonographic images of the pelvis were obtained. The images were reviewed on a PACS workstation. COMPARISON: Obstetrical ultrasound from 11/30/2016 FINDINGS: The cervix is not well visualized. There is a single viable intrauterine gestation. Cardiac activity is present with 152 beats per minute. There is a vertex presentation. The placenta is anterior. There is no evidence for an abruption or placenta previa. There is a subjectively normal amount of amniotic fluid. Measurements were made in order to determine age. The results are as follows (cm): BPD =8.86 HC =33.57 AC =36.29 FL =7.37 Estimated gestational age by ultrasound of approximately 38 weeks, 0 days. The estimated date of delivery by ultrasound is 12/15/2016. Estimated gestational age by LMP of approximately 37 weeks, 6 days. The estimated date of delivery by LMP is 12/16/2016. EFW = 3623 grams (84th percentile) IMPRESSION: Single viable intrauterine gestation of approximately 38 weeks, 0 days . The estimated date of delivery is 12/15/2016 . Dating by ultrasound is within 1 day of dating by LMP. Cephalic presentation. Estimated weight is in the 84th percentile. RPTAT: EE Physician Cuco Date Time Electronically viewed and signed by Physician Cuco on 12/01/2016 19:03 /
--- NOTE | 2016-12-01 19:06 | RADRPT ---
PROCEDURE: US OB biophysical profile. CLINICAL INDICATION: evaluation TECHNIQUE: Multiple sonographic images of the pelvis were obtained. The images were reviewed on a PACS workstation. COMPARISON: Obstetrical ultrasound from 11/30/2016 FINDINGS: There is a single viable intrauterine gestation. Cardiac activity is present with 125 beats per min [place]. There is a vertex presentation. The placenta is anterior. There is no evidence of placental abruption. There is a normal amount of amniotic fluid with an MARK = 9.4 cm. Biophysical profile: movement 2/2 tone 2/2. breathing 2/2 MARK 2/2 Total 01/24 RPTAT: AA . IMPRESSION: Normal biophysical profile. Physician Cuco Date Time Electronically viewed and signed by Physician Cuco on 12/01/2016 19:06 /
[2016-12-01 19:07] LABS: ADD SCAN DIFF NO
[2016-12-01 19:09] LABS: BASOPHILS % 0.2 % (0.0-2.0); EOSINOPHILS # 0.1 10^3/ul (0.0-0.5); EOSINOPHILS % 0.8 % (0.0-7.0); HEMATOCRIT 30.7 % (37.0-47.0); HEMOGLOBIN 9.7 g/dl (12.0-16.0); LYMPHOCYTES # 1.7 10^3/ul (0.8-2.9); LYMPHOCYTES % 18.8 % (15.0-51.0); MEAN CORPUSCULAR HEMOGLOBIN 23.4 pg (29.0-33.0); MEAN CORPUSCULAR HGB CONC 31.6 g/dl (32.0-37.0); MEAN CORPUSCULAR VOLUME 74.2 fl (82.0-101.0); MEAN PLATELET VOLUME 11.2 fl (7.4-10.4); MONOCYTE # 0.8 10^3/ul (0.3-0.9); MONOCYTES % 8.4 % (0.0-11.0); NEUTROPHIL # 6.6 10^3/ul (1.6-7.5); NEUTROPHILS % 71.5 % (39.0-77.0); PLATELET COUNT 213 10^3/UL (140-415); RED BLOOD COUNT 4.14 10^6/ul (4.20-5.40); WHITE BLOOD COUNT 9.3 10^3/ul (4.8-10.8)
[2016-12-01 19:25] LABS: INR 1.05; PROTIME 13.7 Sec (12.2-14.2); PT RATIO 1.1
[2016-12-01 19:26] LABS: PARTIAL THROMBOPLASTIN TIME 29.7 Sec (25.0-35.0)
--- NOTE | 2016-12-01 19:26 | RADRPT ---
PROCEDURE: US Lower extremity Venous. CLINICAL INDICATION: INCREASED EDEMA AND PITTING IN BILATERAL EXTREMITIES TECHNIQUE: Multiple sonographic images of the bilateral lower extremity deep venous system was obt ained utilizing grayscale, color-flow, compressive sonography and doppler imaging with augmentation. The images were reviewed on a PACS workstation. COMPARISON: None. FINDINGS: There is normal compressibility and flow within the bilateral common femoral, deep femoral, superfic ial femoral and popliteal veins. The deep veins the calf were incompletely visualized. IMPRESSION: No sonographic evidence for deep venous thrombosis in the bilateral lower extremities. Physician Andrea Date Time Electronically viewed and signed by Physician Andrea on 12/01/2016 19:26 ML/
[2016-12-01 19:32] LABS: ALBUMIN 3.2 g/dl (3.3-4.9); ALBUMIN/GLOBULIN RATIO 1.18; BILIRUBIN,INDIRECT 0.1 mg/dl (0-1.1); BILIRUBIN,TOTAL 0.1 mg/dl (0.2-1.3); CALCIUM 8.6 mg/dl (8.4-10.2); CREATININE 0.75 mg/dl (0.44-1.00); POTASSIUM 3.7 mmol/L (3.5-5.1); TOTAL PROTEIN 5.9 g/dl (6.1-8.1); URIC ACID 6.3 mg/dl (3.1-7.9)
--- NOTE | 2016-12-01 21:32 | PN ---
Triage Information Date/Time 12/01/2013 Weeks of Gestation 37w6d : 1 Para: 0 Diabetes: none Hypertention: none Additional information induced for 3days with cervidil no response , sent home on 11/30/16 for severe proteinuria without high blood pressure today came back to triage for swollen legs which is more noticeble on left leg Objective pitting edema ++/++ BPP 8/8 MARK 9.4 [id number] urine protein++++ doppler u/s BLE neg for DVT GBS pos Vital Signs Date Time Temp Pulse Resp B/P Pulse Ox O2 Delivery O2 Flow Rate FiO2 12/01/16 18:26 98.3 78 20 135/63 98 Room Air Results/Medications Result Diagram: 12/01/16 1840 12/01/16 1840 Results 24 hrs Laboratory Tests Test 12/01/16 17:52 12/01/16 17:57 12/01/16 18:40 Urine Color YELLOW Urine Clarity SLIGHTLY CLOUDY Urine pH 6.0 Urine Specific [place] 1.025 Urine Ketones NEGATIVE Urine Nitrite NEGATIVE Urine Bilirubin 1+ H Urine Ictotest NEGATIVE Urine Urobilinogen 4.0 E.U./dL H Urine Leukocyte Esterase TRACE H Urine Microscopic RBC 2-5 Urine Microscopic WBC >50 Urine Squamous Epithelial Cells MANY Urine Bacteria MODERATE Urine Hemoglobin 1+ H Urine Glucose NEGATIVE Urine Total Protein 4+ H Bedside Urine pH (LAB) 6.5 Bedside Urine Protein (LAB) 3+ H Bedside Urine Glucose (UA) Negative Bedside Urine Ketones (LAB) Negative Bedside Urine Blood 1+ H Bedside Urine Nitrite (LAB) Negative Bedside Urine Leukocyte Esterase (L Trace H White Blood Count 9.3 Red Blood Count 4.14 L Hemoglobin 9.7 L Hematocrit 30.7 L Mean Corpuscular Volume 74.2 L Mean Corpuscular Hemoglobin 23.4 L Mean Corpuscular Hemoglobin Concent 31.6 L Red Cell Distribution Width 17.0 H Platelet Count 213 Mean Platelet Volume 11.2 H Neutrophils % 71.5 Lymphocytes % 18.8 Monocytes % 8.4 Eosinophils % 0.8 Basophils % 0.2 Nucleated Red Blood Cells % 0.0 Neutrophils # 6.6 Lymphocytes # 1.7 Monocytes # 0.8 Eosinophils # 0.1 Basophils # 0.0 Nucleated Red Blood Cells # 0.0 Prothrombin Time 13.7 Prothrombin Time Ratio 1.1 INR International Normalized Ratio 1.05 Activated Partial Thromboplast Time 29.7 Fibrinogen 655.0 H Sodium Level 137 Potassium Level 3.7 Chloride Level 111 H Carbon Dioxide Level 20 L Anion Gap 10 Blood Urea Nitrogen 8 Creatinine 0.75 Glucose Level 81 Uric Acid 6.3 Calcium Level 8.6 Total Bilirubin 0.1 L Direct Bilirubin 0.00 Indirect Bilirubin 0.1 Aspartate Amino Transf (AST/SGOT) 66 H Alanine Aminotransferase (ALT/SGPT) 65 Alkaline Phosphatase 154 H Total Protein 5.9 L Albumin 3.2 L Globulin 2.70 Albumin/Globulin Ratio 1.18 Assessment/Plan IUP 37w6d preecclampsia second trial of induction of labor on 12/03/16 TOMASA ALCANTARA MD Dec 01, 2016 21:30
== END 2016-12-01 20:34 | disposition home or self-care (01) ==
LOC: L-D 17:25 → OBT 17:25
PROVIDERS: ATTEND Obstetrics & Gynecology
DX: O14.93 Unspecified pre-eclampsia, third trimester (principal); O26.892 Other specified pregnancy related conditions, second trimester; M79.89 Other specified soft tissue disorders; Z3A.37 37 weeks gestation of pregnancy
CPT/HCPCS: 76815; 76818; 80053; 81001; 84560; 85025; 85384; 85610; 85730; 93970; Z7500; 81003; G0463

== ENCOUNTER 2016-12-03 09:00 | Inpatient (IN) | payer OTHER ==
[~2016-12-03] VITALS: Ht 167.6 cm; Wt 127.1 kg
[2016-12-03 11:33] VITALS: Ht 167.6 cm; Wt 127.1 kg
[2016-12-03 11:34] VITALS: BP 123/67; PULSE 62; RESP 16
[2016-12-03] MEDS ORDERED: DINOPROSTONE 10 MG VAG SUPP VAG ONE (12:30)
[2016-12-03] MEDS ORDERED: LIDOCAINE 1% (MPF) 30 ML INJ INJ PRN (12:30)
[2016-12-03] MEDS ORDERED: MINERAL OIL LIGHT 10 ML VIAL TOP PRN (12:30)
[2016-12-03] MEDS ORDERED: OXYTOCIN 30 UNITS/LR 500 ML IV SCH (12:30)
[2016-12-03] MEDS ORDERED: METHYLERGONOVINE 0.2 MG INJ IM PRN (12:30)
[2016-12-03] MEDS ORDERED: AMPICILLIN 2 GM/NS (PMX) 100 ML IV ONE (12:30)
[2016-12-03] MEDS ORDERED: ACETAMINOPHEN/CODEINE #3 TAB PO PRN (12:30)
[2016-12-03] MEDS ORDERED: IBUPROFEN 600 MG TAB PO PRN (12:30)
[2016-12-03] MEDS ORDERED: CARBOPROST 250 MCG INJ IM PRN (12:30)
[2016-12-03] MEDS ORDERED: OXYTOCIN 30 UNITS/LR 500 ML IV PRN (12:30)
[2016-12-03] MEDS ORDERED: MISOPROSTOL 200 MCG TAB PR PRN (12:30)
[2016-12-03] MEDS: LACTATED RINGER'S 1,000 ML IV SCH ×2 (13:13→21:21)
[2016-12-03 13:52] LABS: ADD SCAN DIFF NO
[2016-12-03 14:03] LABS: BASOPHILS % 0.4 % (0.0-2.0); EOSINOPHILS # 0.1 10^3/ul (0.0-0.5); EOSINOPHILS % 0.9 % (0.0-7.0); HEMATOCRIT 30.3 % (37.0-47.0); HEMOGLOBIN 9.7 g/dl (12.0-16.0); LYMPHOCYTES # 1.6 10^3/ul (0.8-2.9); LYMPHOCYTES % 18.4 % (15.0-51.0); MEAN CORPUSCULAR HEMOGLOBIN 23.9 pg (29.0-33.0); MEAN CORPUSCULAR VOLUME 74.6 fl (82.0-101.0); MEAN PLATELET VOLUME 12.2 fl (7.4-10.4); MONOCYTE # 0.6 10^3/ul (0.3-0.9); MONOCYTES % 7.2 % (0.0-11.0); NEUTROPHIL # 6.2 10^3/ul (1.6-7.5); NEUTROPHILS % 72.9 % (39.0-77.0); PLATELET COUNT 216 10^3/UL (140-415); RED BLOOD COUNT 4.06 10^6/ul (4.20-5.40); RED CELL DISTRIBUTION WIDTH 17.2 % (11.5-14.5); WHITE BLOOD COUNT 8.4 10^3/ul (4.8-10.8)
[2016-12-03 14:11] LABS: INR 0.98
[2016-12-03 14:12] LABS: PARTIAL THROMBOPLASTIN TIME 29.9 Sec (25.0-35.0)
[2016-12-03] MEDS: AMPICILLIN 1 GM/NS (PMX) 50 ML IV SCH ×2 (17:18→21:21)
[2016-12-03] MEDS ORDERED: LACTATED RINGER'S 1,000 ML IV PRN (20:00)
--- NOTE | 2016-12-03 20:46 | HP ---
Date/Time of Note Date/Time of Note DATE: 12/03/16 TIME: 19:15 OB - History Hx of Present Free Text/Dictation admitted for second course of induction at 37+ weeks because of PIH Last Menstrual Period: Mar 11, 2016 Estimated Due Date: Dec 16, 2016 : 1 Para: 0 Care: Good Care Ultrasounds: Normal mid trimester US Obstetrical Complications: Gestational Hypertension Medical Complications: None Past Family/Social History * Past Medical, Surgical, Family and Obstetric Histories reviewed from chart. Blood Type: A+ Rubella: immune RPR/VDRL: Negative GBS Status: Negative HBsAG: Positive OB Admission Exam Vital Signs Vital Signs Vital Signs Date Time Temp Pulse Resp B/P Pulse Ox O2 Delivery O2 Flow Rate FiO2 12/03/16 11:34 98.4 62 16 123/67 Physical Exam HEENT: WNL Heart: Rhythm Normal Lungs: Clear, Equal Abdomen: WNL Extremities: Normal Reflexes: Normal Cervical Dilatation: 1cm Effacement: 0% Station: -3 Membranes: Intact Heart Rate: 140's Accelerations: Accelerations Present Decelerations: No Decelerations Varibility: Marked Contractions on Admission: None Last 72 hours Lab Results CBC & BMP 12/03/16 13:42 OB Assessment/Plan Other Assessment: PIH at 37 + weeks Induction Method: per Misoprostol Protocol BO MARTINEZ MD Dec 03, 2016 19:18
[2016-12-04] MEDS: AMPICILLIN 1 GM/NS (PMX) 50 ML IV SCH ×6 (01:18→21:39)
[2016-12-04] MEDS: LACTATED RINGER'S 1,000 ML IV SCH ×3 (06:04→22:59)
--- NOTE | 2016-12-04 19:18 | PN ---
Date/Time of Note Date/Time of Note DATE: 12/04/16 TIME: 19:17 OB Subjective Subjective Subjective C/O uterine contractions OB Objective Objective Objective VSS Cx: %70 1-2 cm -3 station ' OB Assessment/Plan Reason for admission: induction of labor Other Assessment: PIH 38 weeks gestation Induction Method: per Pitocin Protocol BO MARTINEZ MD Dec 04, 2016 19:18
[2016-12-04] MEDS ORDERED: OXYTOCIN 30 UNITS/LR 500 ML IV SCH (19:30)
[2016-12-05] MEDS: AMPICILLIN 1 GM/NS (PMX) 50 ML IV SCH ×5 (01:35→17:27)
[2016-12-05] MEDS: BUTORPHANOL 2 MG INJ IV PRN ×2 (03:23→07:37)
[2016-12-05] MEDS: LACTATED RINGER'S 1,000 ML IV SCH ×2 (07:19→14:31)
[2016-12-05] MEDS ORDERED: FENTAnyl 2MCG/ML-ROPIV 0.2% 100 ML ONE (13:36)
[2016-12-05] MEDS ORDERED: NALOXONE (0.4 MG/ML) INJ IV PRN (15:00)
[2016-12-05] MEDS ORDERED: FENTAnyl 2MCG/ML-ROPIV 0.2% 100 ML BAG EPI SCH (15:00)
--- NOTE | 2016-12-05 19:53 | LDN ---
Date/Time of Note Date/Time of Note DATE: 12/05/16 TIME: 19:50 Delivery Summary of a viable infant over intact perineum Weeks of Gestation 38+ Placenta Delivered: Spontaneously, Intact & Complete Meconium: none Episiotomy: No Perineal laceration: 2 Laceration repair: 2nd degree perineal laceration was repaired in layers with 2 0 Vicryl and 2 0 Chromic Anesthesia type: Epidural Estimated blood loss: 300 Sponge & Needle done & correct: Yes All needle counts correct: Yes Any foreign bodies felt in the: No Problems: Delivery Information Sex Infant Sex: male Apgars 1 Minute: 9 5 Minute: 9 Suctioning Nose & mouth suctioned at rebekah: Yes Delee suction performed: No Umbilical Cord Umbilical cord with: 3 Vessels Cord presentations: no nuchal cord Cord Blood was obtained: Yes Mother & Baby Disposition Disposition Mom & Baby to Maternity; Good: Yes (mother and baby ere recovered in good condition ) Mom transferred to: Other (maternity) Baby to NICU: No BO MARTINEZ MD Dec 05, 2016 19:53
[2016-12-05] MEDS: OXYTOCIN 30 UNITS/LR 500 ML IV SCH ×2 (19:56→21:54)
[2016-12-05 21:19] LABS: ADD SCAN DIFF NO
[2016-12-05 21:21] LABS: BASOPHILS % 0.2 % (0.0-2.0); EOSINOPHILS % 0.1 % (0.0-7.0); HEMATOCRIT 33.4 % (37.0-47.0); HEMOGLOBIN 10.8 g/dl (12.0-16.0); MEAN CORPUSCULAR HEMOGLOBIN 24.3 pg (29.0-33.0); MEAN CORPUSCULAR HGB CONC 32.3 g/dl (32.0-37.0); MEAN CORPUSCULAR VOLUME 75.1 fl (82.0-101.0); MEAN PLATELET VOLUME 11.8 fl (7.4-10.4); MONOCYTE # 0.9 10^3/ul (0.3-0.9); MONOCYTES % 4.8 % (0.0-11.0); NEUTROPHIL # 17.4 10^3/ul (1.6-7.5); NEUTROPHILS % 89.3 % (39.0-77.0); PLATELET COUNT 213 10^3/UL (140-415); RED BLOOD COUNT 4.45 10^6/ul (4.20-5.40); RED CELL DISTRIBUTION WIDTH 17.8 % (11.5-14.5); WHITE BLOOD COUNT 19.5 10^3/ul (4.8-10.8)
[2016-12-05 21:45] LABS: ALBUMIN 3.1 g/dl (3.3-4.9); ALBUMIN/GLOBULIN RATIO 1.14; BILIRUBIN,INDIRECT 0.2 mg/dl (0-1.1); BILIRUBIN,TOTAL 0.2 mg/dl (0.2-1.3); CALCIUM 8.2 mg/dl (8.4-10.2); CREATININE 0.65 mg/dl (0.44-1.00); PHOSPHORUS 3.8 mg/dl (2.5-4.9); POTASSIUM 3.8 mmol/L (3.5-5.1); TOTAL PROTEIN 5.8 g/dl (6.1-8.1)
[2016-12-05] MEDS ORDERED: MAGNESIUM SULFATE 3 GM in SOD CHLORIDE 0.9% 100 ML IV ONE (22:30)
[2016-12-05 22:57] LABS: FIBRIN SPLIT PRODUCT <10 ug/ml (<10)
[2016-12-05] MEDS: LABETALOL 100 MG TAB PO SCH (23:30)
[2016-12-05] MEDS: MAGNESIUM SULFATE 20 GM/500 ML 500 ML IV SCH (23:45)
[2016-12-06] VITALS (16 sets, daily range): BP systolic 121–152; BP diastolic 60–94; PULSE 70–95; RESP 18–20
[2016-12-06] MEDS ORDERED: LACTATED RINGER'S 1,000 ML IV* SCH (00:42)
[2016-12-06] MEDS ORDERED: OXYTOCIN 30 UNITS/LR 500 ML IV PRN (01:00)
[2016-12-06] MEDS ORDERED: LANOLIN 7 GM TUBE TOP PRN (01:00)
[2016-12-06] MEDS ORDERED: METHYLERGONOVINE 0.2 MG INJ IM PRN (01:00)
[2016-12-06] MEDS ORDERED: ACETAMINOPHEN/CODEINE #3 TAB PO PRN ×2 (01:00)
[2016-12-06] MEDS ORDERED: MISOPROSTOL 200 MCG TAB PR PRN (01:00)
[2016-12-06] MEDS ORDERED: WITCH HAZEL/GLYCERIN PAD PR PRN (01:00)
[2016-12-06] MEDS ORDERED: DIBUCAINE 1% 30 GM OINT PR PRN (01:00)
[2016-12-06] MEDS ORDERED: BENZOCAINE 20% 56 ML SPRAY TOP PRN (01:00)
[2016-12-06] MEDS ORDERED: CARBOPROST 250 MCG INJ IM PRN (01:00)
[2016-12-06] MEDS ORDERED: ZOLPIDEM 5 MG TAB PO PRN (01:00)
[2016-12-06] MEDS: CEPHALEXIN 500 MG CAP PO SCH ×5 (01:08→23:28)
[2016-12-06] MEDS: IBUPROFEN 600 MG TAB PO SCH ×4 (06:38→23:28)
[2016-12-06] MEDS ORDERED: LACTATED RINGER'S 300 ML IV ONE (07:30)
[2016-12-06 08:15] LABS: ADD SCAN DIFF NO
[2016-12-06 08:18] LABS: BASOPHILS % 0.2 % (0.0-2.0); EOSINOPHILS # 0.1 10^3/ul (0.0-0.5); EOSINOPHILS % 0.4 % (0.0-7.0); HEMATOCRIT 29.6 % (37.0-47.0); HEMOGLOBIN 9.5 g/dl (12.0-16.0); LYMPHOCYTES # 2.1 10^3/ul (0.8-2.9); LYMPHOCYTES % 12.7 % (15.0-51.0); MEAN CORPUSCULAR HEMOGLOBIN 24.1 pg (29.0-33.0); MEAN CORPUSCULAR HGB CONC 32.1 g/dl (32.0-37.0); MEAN CORPUSCULAR VOLUME 75.1 fl (82.0-101.0); MEAN PLATELET VOLUME 12.3 fl (7.4-10.4); MONOCYTE # 1.2 10^3/ul (0.3-0.9); MONOCYTES % 7.1 % (0.0-11.0); NEUTROPHIL # 13.1 10^3/ul (1.6-7.5); NEUTROPHILS % 79.1 % (39.0-77.0); PLATELET COUNT 208 10^3/UL (140-415); RED BLOOD COUNT 3.94 10^6/ul (4.20-5.40); RED CELL DISTRIBUTION WIDTH 17.9 % (11.5-14.5); WHITE BLOOD COUNT 16.6 10^3/ul (4.8-10.8)
[2016-12-06] MEDS: MAGNESIUM HYDROXIDE 30ML CUP PO SCH ×2 (09:40→21:05)
[2016-12-06] MEDS: LABETALOL 100 MG TAB PO SCH ×2 (09:41→21:05)
[2016-12-06] MEDS: SENNA/DOCUSATE NA (8.6MG/50MG) TAB PO SCH ×2 (09:41→21:05)
[2016-12-06] MEDS: MAGNESIUM SULFATE 20 GM/500 ML 500 ML IV SCH (17:47)
--- NOTE | 2016-12-06 20:40 | DS ---
Date/Time of Note Date/Time of Note home next day DATE: 12/06/16 TIME: 20:39 Obstetrical Discharge Record Final Diagnosis Final Diagnosis: Term delivered Other Final Diagnosis S/P vaginal delivery PIH Vaginal Delivery Obstetrical Delivery: Spontaneous, Laceration, Repaired Complications Preg induced Hypertension Augmentation: Yes Induction: Yes Condition on Discharge Physical Assessment Last Vitals: see nurses notes Voiding: Yes Bowel Movement: Yes Breast: Soft, non-tender, Filling Fundus: Firm Abdomen and Incision: soft bs + Episiotomy: NA perineum: healing Calf Tenderness: No Patient Condition: Good BO MARTINEZ MD Dec 06, 2016 20:40
--- NOTE | 2016-12-06 20:44 | PD.PPDC ---
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
[2016-12-06] MEDS ORDERED: IBUP-1542 PO (20:45)
[2016-12-06] MEDS ORDERED: LABE100T3 PO (20:45)
[2016-12-06] MEDS ORDERED: LABETALOL 100 MG TAB PO SCH (22:30)
[2016-12-07 03:50] VITALS: BP 135/84; PULSE 60; RESP 18
[2016-12-07] MEDS: IBUPROFEN 600 MG TAB PO SCH ×3 (05:28→17:29)
[2016-12-07] MEDS: CEPHALEXIN 500 MG CAP PO SCH ×3 (05:28→17:29)
[2016-12-07 07:38] LABS: ADD SCAN DIFF NO
[2016-12-07 07:50] LABS: BASOPHILS % 0.2 % (0.0-2.0); EOSINOPHILS # 0.1 10^3/ul (0.0-0.5); EOSINOPHILS % 0.8 % (0.0-7.0); HEMATOCRIT 29.5 % (37.0-47.0); HEMOGLOBIN 9.2 g/dl (12.0-16.0); LYMPHOCYTES # 2.6 10^3/ul (0.8-2.9); LYMPHOCYTES % 21.9 % (15.0-51.0); MEAN CORPUSCULAR HEMOGLOBIN 23.7 pg (29.0-33.0); MEAN CORPUSCULAR HGB CONC 31.2 g/dl (32.0-37.0); MEAN CORPUSCULAR VOLUME 75.8 fl (82.0-101.0); MONOCYTE # 0.7 10^3/ul (0.3-0.9); NEUTROPHIL # 8.4 10^3/ul (1.6-7.5); NEUTROPHILS % 70.7 % (39.0-77.0); PLATELET COUNT 199 10^3/UL (140-415); RED BLOOD COUNT 3.89 10^6/ul (4.20-5.40); RED CELL DISTRIBUTION WIDTH 18.6 % (11.5-14.5); WHITE BLOOD COUNT 11.9 10^3/ul (4.8-10.8)
[2016-12-07 08:00] VITALS: BP 138/88; PULSE 78; RESP 20
[2016-12-07] MEDS ORDERED: DIPHTH/TET/ACEL PERTUSS (ADULT) 0.5 ML VIAL IM* ONE (09:00)
[2016-12-07] MEDS: MAGNESIUM HYDROXIDE 30ML CUP PO SCH (09:00)
[2016-12-07] MEDS: SENNA/DOCUSATE NA (8.6MG/50MG) TAB PO SCH (09:00)
[2016-12-07] MEDS ORDERED: VARICELLA VACCINE LIVE/PF 1,350 UNIT/0.5 ML ML SC* ONE (09:00)
[2016-12-07] MEDS ORDERED: MEASLES,MUMPS,RUBELLA VACCINE INJ SC* ONE (09:00)
[2016-12-07] MEDS: LABETALOL 100 MG TAB PO SCH (09:04)
[2016-12-07 12:30] VITALS: BP 128/80; PULSE 77; RESP 19
[2016-12-07 16:09] VITALS: BP 125/70; PULSE 70; RESP 18
== END 2016-12-07 18:25 | disposition home or self-care (01) | DRG 775 ==
LOC: L-D 11:01 → PP1 12-06 00:10
PROVIDERS: ADMIT Obstetrics & Gynecology; ATTEND Obstetrics & Gynecology
PROC: 10E0XZZ Delivery of Products of Conception, External Approach (ICD-10-PCS; principal; 2016-12-05)
PROC: 0KQM0ZZ Repair Perineum Muscle, Open Approach (ICD-10-PCS; 2016-12-05)
DX: O70.1 Second degree perineal laceration during delivery (principal); Z37.0 Single live birth; Z68.42 Body mass index [BMI] 45.0-49.9, adult; O99.214 Obesity complicating childbirth; E66.01 Morbid (severe) obesity due to excess calories; Z3A.38 38 weeks gestation of pregnancy
CPT/HCPCS: 62319; 80053; 80069; 80076; 83615; 83735; 84560; 85025; 85362; 85384; 85610; 85730; 86592; 86900; 86901; 90715; 90716; A4310; J0290; J0595; J2590; J3010; J3475; J7120

== ENCOUNTER 2017-01-11 14:26 | Emergency (ER) | payer OTHER ==
[~2017-01-11] VITALS: Ht 165.1 cm; Wt 116.0 kg
[~2017-01-11 14:26] MED LIST changes: +IBUP-1542 PO; +LABE100T3 PO
[2017-01-11 14:29] VITALS: Ht 165.1 cm; Wt 116.0 kg
--- NOTE | 2017-01-11 17:13 | RADRPT ---
PROCEDURE: Chest x-ray CLINICAL INDICATION: Mid back pain TECHNIQUE: Chest single view COMPARISON: None FINDINGS: The heart is normal in size. The pulmonary vessels are normal in caliber. The lungs are clear. Th e costophrenic angles are sharp. The visualized bony thorax is unremarkable. IMPRESSION: No acute cardiopulmonary disease. RPTAT: HH .José Miguel Nunez MD, Date Time Electronically viewed and signed by .José Miguel Nunez MD, MD on 01/11/2017 17:13 .W/
--- NOTE | 2017-01-11 17:16 | RADRPT ---
PROCEDURE: XR Thoracic Spine. CLINICAL INDICATION: Back pain. TECHNIQUE: Three views. Frontal, lateral, and lateral swimmers. COMPARISON: None available FINDINGS: There is normal stature and alignment of the vertebrae. There is no fracture. There is no lytic or blastic lesion. There are degenerative changes with small osteophytes in the mid and lower thoracic spine. The disk height is normal. The paravertebral soft tissues are unremarkable. IMPRESSION: 1. Mild degenerative change. 2. Otherwise normal images of the thoracic spine. RPTAT: QQ .Trae Will MD, MD Date Time Electronically viewed and signed by .Trae Will MD, MD on 01/11/2017 17:15 .R/
[2017-01-11] MEDS ORDERED: NAPR-260 PO (17:26)
--- NOTE | 2017-01-11 17:35 | ERD ---
ER Documentation Chief Complaint Date/Time DATE: 01/11/17 TIME: 17:28 Chief Complaint 10/26 upper back pain x today HPI Patient is a 26-year-old female who presents the emergency department for upper back pain which started earlier today. Patient states throughout the morning she was doing some "light cleaning ". 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 Patient denies any falls or trauma. Patient denies any urinary incontinence, stool incontinence, urine incontinence, fever, chills, dysuria, hematuria, flank pain.. Patient denies any chest pain, shortness breath, LOC, left upper extremity pain, nausea , vomiting. She states she did take ibuprofen 600 mg which did provide her with some relief. Her current pain level is a 2 out of 10. She is able to ablate without any difficulty. Patient denies any numbness or tingling. ROS All systems reviewed and are negative except as per history of present illness. Medications Home Meds Active Scripts Naproxen* (Naprosyn*) 500 Mg Tablet, 500 MG PO BID Y for PAIN AND/OR INFLAMMATION, #30 TAB Prov:MARIELLA MARTINEZ PA-C 01/11/17 Labetalol Hcl* (Labetalol Hcl*) 100 Mg Tablet, 100 MG PO BID, #120 TAB 0 Refills Prov:BO MARTINEZ MD 12/06/16 Ibuprofen* (Ibuprofen*) 600 Mg Tablet, 600 MG PO Q6, #30 TAB 0 Refills Prov:BO MARTINEZ MD 12/06/16 Reported Medications Calcium Carbonate* (Calcium Carbonate*) 600 MG Ca Tab, 600 MG PO, TAB 10/10/16 Ferrous Sulfate* (Ferrous Sulfate*) 325 Mg Tabec, 325 MG PO DAILY, TAB 10/10/16 Multivit/Min/Fol Ac/Iron/Pren* ( S*) 1 Tab Tab, 1 TAB PO DAILY, TAB 10/10/16 Allergies Allergies: Coded Allergies: No Known Allergy (Unverified , 01/11/17) PMhx/Soc Medical and Surgical Hx: pt denies Medical Hx, pt denies Surgical Hx Hx Cardiac Disorders: Yes (htn with prengancy) Hx Alcohol Use: No Hx Substance Use: No Hx Tobacco Use: No FmHx Family History: No diabetes Physical Exam Vitals Vital Signs Date Time Temp Pulse Resp B/P Pulse Ox O2 Delivery O2 Flow Rate FiO2 01/11/17 14:29 97.3 78 18 124/60 98 Physical Exam GENERAL: Well-developed, well-nourished female. Appears in no acute distress. HEAD: Normocephalic, atraumatic. EYES: Pupils are equally reactive bilaterally. EOMs grossly intact. No conjunctival erythema. ENT: Moist mucous membranes. No uvula deviation. No kissing tonsils. NECK: Supple. No meningismus. Normal range of motion of the neck. LUNG: Clear to auscultation bilaterally. No rhonchi, wheezing, rales or coarse breath sounds. HEART: Regular rate and rhythm. No murmurs, rubs or gallops. BACK: No midline tenderness. Tender to palpation on the left thoracic and lumbar paraspinals muscles. No CVA tenderness noted bilaterally. EXTREMITIES: Equal pulses bilaterally. No peripheral clubbing, cyanosis or edema. No unilateral leg swelling. NEUROLOGIC: Alert and oriented. Moving all four extremities without any difficulty. Normal speech. Steady gait. SKIN: Normal color. Warm and dry. No rashes or lesions. Procedures/MDM ED COURSE: The patient was stable throughout ED course. I kept the patient and/or family informed of laboratory and diagnostic imaging results throughout the ED course. DIAGNOSTIC IMAGING: Read by radiologist. Patient: COURTNEY TAFOYA : 1990 Age: 26 Sex: F MR #: [id number] DOS: 01/11/17 1545 Ordering MD: MARIELLA MARTINEZ PA-C Location: [facility] Room/Bed: PROCEDURE: Chest x-ray CLINICAL INDICATION: Mid back pain TECHNIQUE: Chest single view COMPARISON: None FINDINGS: The heart is normal in size. The pulmonary vessels are normal in caliber. The lungs are clear. The costophrenic angles are sharp. The visualized bony thorax is unremarkable. IMPRESSION: No acute cardiopulmonary disease. RPTAT: HH .José Miguel Nunez MD, Date Time Electronically viewed and signed by .José Miguel Nunez MD, MD on 01/11/2017 17:13 .W/ CC: MARIELLA MARTINEZ PA-C DIAGNOSTIC IMAGING REPORT Patient: COURTNEY TAFOYA : 1990 Age: 26 Sex: F MR #: [id number] DOS: 01/11/17 1545 Ordering MD: MARIELLA MARTINEZ PA-C Location: [facility] Room/Bed: PROCEDURE: Chest x-ray CLINICAL INDICATION: Mid back pain TECHNIQUE: Chest single view COMPARISON: None FINDINGS: The heart is normal in size. The pulmonary vessels are normal in caliber. The lungs are clear. The costophrenic angles are sharp. The visualized bony thorax is unremarkable. IMPRESSION: No acute cardiopulmonary disease. RPTAT: HH .José Miguel Nunez MD, MD Date Time Electronically viewed and signed by .José Miguel Nunez MD, MD on 01/11/2017 17:13 .W/ CC: MARIELLA MARTINEZ PA-C MEDICAL DECISION MAKING: This is a 26-year-old female who presents with mid to lower back pain after a cleaning and picking up her baby earlier today. Vital signs were reviewed. Patient was afebrile. Patient denied any saddle anesthesia, urinary incontinence, bowel incontinence, night pain or recent trauma. X-ray thoracic spine imaging was obtained. Chest x-ray was unremarkable. Thoracic lumbar series is unremarkable. Given these findings, the patient's presentation is most consistent with musculoskeletal pain. I have a much lower clinical concern for cauda equine syndrome, spinal fractures, epidural abscess, spinal metastases, osteomyelitis, shingles, aortic dissection, ruptured or leaking AA, pyelonephritis or nephrolithiasis. PRESCRIPTIONS: Naproxen Patient was advised on the risks versus benefits of taking naproxen while breast -feeding.. Patient was advised to pump and dump. DISCHARGE: At this time, patient is stable for discharge and outpatient management. A copy of all imaging studies obtained today was provided to the patient. RICE therapy and ROM exercises were advised to avoid stiffness. I have instructed the patient to follow-up with his/her primary care physician in 1-2 days. I have discussed with the patient the possibility of needing to see an orthopedic shoes salesperson for further workup and imaging if the pain persists. I have instructed the patient to promptly return to the ER for any new or worsening symptoms including increased pain, swelling, warmth, urinary incontinence, stool incontinence, weakness or numbness. The patient and/or family expressed understanding of and agreement with this plan. All questions were answered. Home care instructions were provided. Departure Diagnosis: Primary Impression: Back pain Back pain location: thoracic back pain Chronicity: unspecified Back pain laterality: unspecified Qualified Code: M54.6 - Thoracic back pain, unspecified back pain laterality, unspecified chronicity Condition: Stable Patient Instructions: Back Pain (Acute Or Chronic) Referrals: IVELISSE CALHOUN MD (PCP) Additional Instructions: Call your primary care doctor TOMORROW for an appointment during the next 1-2 days.See the doctor sooner or return here if your condition worsens before your appointment time. Patient encouraged to pump and then dump milk prior to feeding baby. MARIELLA MARTINEZ PA-C Jan 11, 2017 17:34
== END 2017-01-11 17:38 | disposition home or self-care (01) ==
LOC: FTE 14:26
DX: M54.6 Pain in thoracic spine (principal)
CPT/HCPCS: 71010; 72072; Z7502

== ENCOUNTER 2017-08-04 15:40 | Emergency (ER) | END 2017-08-04 16:23 | disposition home or self-care (01) ==